=== PATIENT | female | born 1975 | race African-American/Black ===

== ENCOUNTER 2020-03-01 04:50 | Day surgery (SDC) | payer OTHER ==
[2020-02-29 09:59] VITALS: BMI 31.6
[~2020-03-01 04:50] MED LIST: BUPIVACAINE HCL/PF 0.5% (5MG/ML) 10 ML VIAL NR ONE
--- NOTE | 2020-03-01 08:57 | HP ---
History & Physical Update - History History: No Change - Physical Physical: No Change - Assessment Assessment: No Change - Plan Plan: No Change (Consent signed and witnessed)
[2020-03-01] MEDS ORDERED: MIDAZOLAM HCL 2 MG/2 ML SINGLE DOSE VIAL ONE (09:10)
[2020-03-01] MEDS ORDERED: GLYCOPYRROLATE 0.2 MG/1 ML VIAL ONE (09:10)
[2020-03-01] MEDS ORDERED: fentaNYL CITRATE 250 MCG/5 ML VIAL ONE (09:10)
[2020-03-01] MEDS ORDERED: ELECTROLYTE-148 SOLN 1,000 ML IV SCH (09:15)
[2020-03-01] MEDS ORDERED: IBUPROFEN 600 MG TABLET (FP) PO PRN (09:15)
[2020-03-01] MEDS ORDERED: ONDANSETRON 4 MG/2 ML VIAL IVPUSH PRN (09:15)
[2020-03-01] MEDS ORDERED: IBUPROFEN 800 MG/8 ML IJ IVPB PRN (09:15)
[2020-03-01] MEDS ORDERED: oxyCODONE HCL 5 MG TABLET PO PRN (09:15)
--- NOTE | 2020-03-01 09:15 | OP ---
Operative Note - Note: Operative Date: 03/01/20 Pre-Operative Diagnosis: 45yo P2 with fibroids, abnormal uterine bleeding,. Intrauterine device Kyleena. Multiparity Operation: Hysteroscopy/Myomectomy. IUD removal. Laparoscopic bilateral salpingectomy Findings: Right Paratubal cyst removed together with the tube two submucosal fibroids anterior and Right lateral Post-Operative Diagnosis: Same as Pre-op Surgeon: Lima Forbes Pipe Changer: Hira De La Rosa Anesthesiologist/SNUFF BLENDER: Héctor Weir Anesthesia: General Specimens Removed: 1. Bilateral tubes, Right with paratubal cyst. 2. Kyleena IUD. 3. Submucosal shavings with Endometrial curettings Estimated Blood Loss (mls): 15 Drains & Tubes with Location: Fluid deficit 100cc Drains, Volume Out (mls): 700 Fluid Volume Replaced (mls): 700 Operative Report Dictated: Yes
[2020-03-01] MEDS ORDERED: ceFAZolin SODIUM 1 GM VIAL IVPB ONE (10:00)
[2020-03-01] MEDS ORDERED: BUPIVACAINE HCL/PF 0.5% (5MG/ML) 10 ML VIAL NR ONE (10:53)
[2020-03-01] MEDS ORDERED: KETOROLAC TROMETHAMINE 30 MG/1 ML VIAL ONE (11:34)
[2020-03-01] MEDS ORDERED: LIDOCAINE HCL 2% JELLY (5 ML/TUBE) ONE (11:34)
[2020-03-01] MEDS ORDERED: DEXAMETHASONE SOD PHOSPHATE 4 MG/1 ML VIAL ONE (11:34)
[2020-03-01] MEDS ORDERED: ceFAZolin SODIUM 1 GM VIAL ONE (11:34)
[2020-03-01] MEDS ORDERED: LIDOCAINE HCL/PF 2% SDV 5ML VIAL ONE (11:34)
[2020-03-01] MEDS ORDERED: LACTATED RINGERS SOLUTION 1,000 ML IV SCH (12:15)
[2020-03-01 15:00] VITALS: BP 124/72; PULSE 60; TEMP 97.4
--- NOTE | 2020-03-01 23:33 | OP ---
DATE OF OPERATION: 03/01/2020 PREOPERATIVE DIAGNOSIS: A 45-year-old para 2 with fibroids, abnormal uterine bleeding, intrauterine device Mirena, multiparity. POSTOPERATIVE DIAGNOSIS: A 45-year-old para 2 with fibroids, abnormal uterine bleeding, intrauterine device Mirena, multiparity. OPERATION: Hysteroscopy, myomectomy, intrauterine device removal, laparoscopic bilateral salpingectomy. FINDINGS: Right paratubal cyst removed together with right tube, 2 submucosal fibroids anterior and right lateral resected. SURGEON: Marianne Niño MD. SIGN BOARD ERECTOR: ANESTHESIOLOGIST: Héctor Weir MD. ANESTHESIA: General. SPECIMENS REMOVED: 1. Bilateral tubes, right with paratubal cyst. 2. Mirena intrauterine device. 3. Submucosal shavings with endometrial curet ting. DESCRIPTION OF OPERATIVE PROCEDURE: After assuring informed consent, patient was brought to the operating room, where she was placed in dorsal lithotomy position. Abdomen, perineum, and vagina were prepped and draped in sterile fashion. The HUMI manipulator was placed after timeout was completed, and a Guido catheter was placed as well. The 5-mm incision was created in the umbilicus and Veress needle was introduced. The normal saline drop test was performed. Gas was attached, and low intraabdominal pressure was noted. 2 L of CO2 gas were used to insufflate the abdomen to the pressure of approximately 15 mmHg. Subsequently, the Optiview trocar with laparoscope was introduced intraumbilically with good visualization of intraabdominal organs. Inspection of the abdomen was completed, and uterus was found to be multifibroid in nature, normal bilateral fallopian tubes were noted, right with paratubal cyst benign-appearing. The LigaSure device was used to dissect each fallopian tube off the mesosalpinx. Excellent hemostasis was noted. The intraumbilical incision was extended, and 10-mm port was introduced. The EndoCatch bag was introduced through the 10-mm intraumbilical port, and bilateral tubes were retrieved from the abdomen. The 0 Vicryl suture was used to close umbilical opening fascia in 2 sutures. 4-0 Monocryl was used to close 3 skin incisions. The dilute solution of Marcaine was injected into 3 puncture wounds. Air was allowed to escape the abdomen without any problem. Excellent hemostasis was noted during this portion of the procedure. Subsequently, the attention was brought to the vagina. The HUMI manipulator and Guido were removed. The cervix was dilated, and 6.3-mm Symphion hysteroscope was introduced. Overgrown endometrium was noted, and left lateral and anterior fibroids were submucosal, each one with submucosal components was noted. Each one was resected without difficulty with resectoscope device introduced through the Symphion hysteroscope. Subsequently, all instruments were removed from cervix, uterus, and vagina. Sponge and instrument count was correct x2. Patient received 700 mL of fluids, drained 700 mL of urine. Fluid deficit was found to be 100 mL. Estimated blood loss was 15 mL. Patient tolerated procedure well and was brought to the recovery room in stable condition. MARIANNE NIÑO M.D. [id number]
--- NOTE | 2020-03-03 17:36 | PATH ---
Surgical Pathology Report Patient Name: NERI العراقي [facility]. Rec. #: [id number] /Age/Gender: 1975 (Age: 45) / F Account: [id number] Location: [facility] SURGICAL Taken: 03/01/2020 Received: 03/02/2020 Reported: 03/03/2020 Physicians: Lima Forbes M.D. Specimen(s) Received A: LEFT AND RIGHT FALLOPIAN TUBES B: REMOVED IUD C: SHAVED MYOMA AND ENDOMETRIAL CURETTINGS Clinical History Abnormality uterine bleeding, uterine fibroid, multiparity Final Diagnosis A. FALLOPIAN TUBES, LEFT AND RIGHT, BILATERAL LAPAROSCOPIC SALPINGECTOMY: SHORTER FALLOPIAN TUBE WITH ENDOSALPINGOSIS (INCLUDING FIMBRIATED END AND FULL LUMINAL PORTION). LONGER FALLOPIAN TUBE WITH PARATUBAL CYSTS (INCLUDING FIMBRIATED END AND FULL LUMINAL PORTION). B. REMOVED IUD, REMOVAL: FOREIGN BODY MATERIAL CONSISTENT WITH INTRAUTERINE DEVICE (IUD). MACROSCOPIC DIAGNOSIS. C. SHAVED MYOMA, ENDOMETRIAL CURETTINGS, SUBMUCOSAL MYOMECTOMY, DILATION AND CURETTAGE: 2 G, FIBROMUSCULAR TISSUE CONSISTENT WITH SUBMUCOSAL LEIOMYOMA AND SECRETORY ENDOMETRIUM. Electronically Signed Micaela Terry M.D. Gross Description A. Received in formalin labeled "left and right fallopian tubes," are 2 undesignated fallopian tubes measuring 4.0 and 6.0 cm in length. The shorter fallopian tube is fimbriated. The outer surfaces benito-sheikh and smooth. Sectioning reveals an unremarkable lumen. The longer fallopian tube is fimbriated and displays 2 attached paratubal cysts averaging 1.0 cm in greatest dimension. Sectioning reveals an unremarkable lumen. Rope Tow Operator sections are submitted in 4 cassettes as follows: 1-shorter fallopian tube fimbria; 2-cross sections of shorter fallopian tube; 3-longer fallopian tube fimbria; 4-cross sections of longer fallopian tube with paratubal cysts. B. Received in formalin labeled "removed IUD," is a 3 cm in length white, T-shaped device, consistent with an IUD. The IUD displays attached blue string. No soft tissue is present. No sections are submitted, gross only. C. Received in formalin labeled "shaved myoma, endometrial curettings," is a 2 g, 4.2 x 3.6 x 0.4 cm aggregate of benito soft tissue fragments admixed with mucus and blood clot. The formalin is filtered and the specimen is entirely submitted in 3 cassettes. 03/02/2020 [facility]03/02/2020
== END 2020-03-01 15:16 | disposition home or self-care (01) ==
LOC: JASU-SURG 04:50
PROVIDERS: ATTEND Obstetrics & Gynecology
PROC: 0UB98ZZ Excision of Uterus, Via Natural or Artificial Opening Endoscopic (ICD-10-PCS; principal; 2020-03-01 08:30)
PROC: 0UC98ZZ Extirpation of Matter from Uterus, Via Natural or Artificial Opening Endoscopic (ICD-10-PCS; 2020-03-01 08:30)
PROC: 0UB74ZZ Excision of Bilateral Fallopian Tubes, Percutaneous Endoscopic Approach (ICD-10-PCS; 2020-03-01 08:30)
DX: D25.0 Submucous leiomyoma of uterus (principal); N93.9 Abnormal uterine and vaginal bleeding, unspecified; Z64.1 Problems related to multiparity; Z30.432 Encounter for removal of intrauterine contraceptive device; N83.8 Other noninflammatory disorders of ovary, fallopian tube and broad ligament; Z30.2 Encounter for sterilization
CPT/HCPCS: 36415; 84703; 86850; 86900; 86901; 88300-TC; 88302-TC; 88305-TC; 94760